=== PATIENT | female | born 1955 ===

== ENCOUNTER 2019-09-30 09:42 | Outpatient (CLI) | payer OTHER | END 2019-09-30 09:43 | disposition home or self-care (01) | LOC: SONOGRAMA 09:42 → MAMO-SONO 10:15 | DX: N84.0 Polyp of corpus uteri (principal); N60.11 Diffuse cystic mastopathy of right breast; N60.12 Diffuse cystic mastopathy of left breast; R68.82 Decreased libido; E66.9 Obesity, unspecified; R31.21 Asymptomatic microscopic hematuria; R92.1 Mammographic calcification found on diagnostic imaging of breast ==